=== PATIENT | male | born 1970 | race Caucasian/White ===

== ENCOUNTER → 2023-06-21 08:57 | Outpatient (REF) | payer OTHER, SELFPAY | LOC: RCS 08:57 | PROVIDERS: ATTENDING PHYSICIAN Internal Medicine Cardiovascular Disease; FAMILY PHYSICIAN Family Medicine | DX: R07.9 Chest pain, unspecified (principal); Z82.49 Family history of ischemic heart disease and other diseases of the circulatory system | CPT/HCPCS: 93017 ==

== ENCOUNTER → 2024-02-26 19:39 | Outpatient (REF) | payer OTHER, SELFPAY | LOC: MRI 19:39 | PROVIDERS: ATTENDING PHYSICIAN Neurological Surgery; FAMILY PHYSICIAN Family Medicine | DX: D33.2 Benign neoplasm of brain, unspecified (principal) | CPT/HCPCS: 70553; A9575 ==